=== PATIENT | female | born 1950 | race Caucasian/White ===

== ENCOUNTER 2022-02-28 16:49 | Outpatient (CLI) | payer OTHER ==
--- NOTE | 2022-03-01 13:08 | XRAY Report ---
PROCEDURE: Chest 2 View X-Ray INDICATIONS: COUGH TECHNIQUE: 2 view(s) of the chest. COMPARISON: None. FINDINGS: Surgical changes and devices: None. Lungs and pleura: Trace left blunting of the costophrenic angle blunting. Mediastinum: Mediastinal contours are normal. Heart size is normal. Bones and chest wall: No suspicious bony abnormalities. Soft tissues appear unremarkable. IMPRESSION: Trace left blunting of the costophrenic angle blunting, possibly trace effusion vs scarr ing. Reviewed by: Priscilla Whalen MD on 03/01/2022 1:07 PM PDT Approved by: Priscilla Whalen MD on 03/01/2022 1:07 PM PDT Station ID: [id number]
== END 2022-02-28 16:50 | disposition home or self-care (01) ==
LOC: DI.N 16:49
PROVIDERS: ATTEND Internal Medicine
DX: R05.9 Cough, unspecified (principal); R53.83 Other fatigue

== ENCOUNTER 2022-05-01 10:17 | Outpatient (CLI) | payer MEDICARE, OTHER ==
--- NOTE | 2022-05-01 20:19 | DEXA Report ---
PROCEDURE: Dexa Spine and/or Hip INDICATIONS: POST MENOPAUSAL TECHNIQUE: Dual energy x-ray absorptiometry (DXA) was performed on a [employer] System. Regions measur ed are the AP Spine, femoral neck, and if needed forearm. COMPARISON: None. FINDINGS: Lumbar Spine: Bone Mineral Density 1.124 g/cm/cm,T score -0.5, normal Left Hip: Bone Mineral Density 0.933 g/cm/cm,T score -0.6, normal Left Femoral Neck: Bone Mineral Density 0.797 g/cm/cm, T score -1.7, osteopenia (T score greater or equal to -1.0: NORMAL) (T score from -1.1 to -2.4: OSTEOPENIA) (T score less than or equal to -2.5 to: OSTEOPOROSIS) Impression: 1. Osteopenic left femoral neck Patients with diagnosis of osteoporosis or osteopenia should have regular bone mineral density assess ment. For those eligible for Medicare, routine testing is allowed once every 2 years. Testing frequ ency can be increased for patients who have rapidly progressing disease or for those who are receivin g medical therapy to restore bone mass. Reviewed by: Joe Capps MD on 05/01/2022 7:16 PM CORAL Approved by: Joe Capps MD on 05/01/2022 7:16 PM CORAL Station ID: [id number]
== END 2022-05-01 10:18 | disposition home or self-care (01) ==
LOC: DI 10:17
PROVIDERS: ATTEND Physician Assistant
DX: M85.88 Other specified disorders of bone density and structure, other site (principal)

== ENCOUNTER 2022-06-08 09:41 | Outpatient (CLI) | payer MEDICARE, OTHER ==
--- NOTE | 2022-06-09 10:16 | Ultrasound Report ---
LIMITED ULTRASOUND OF LEFT BREAST AND AXILLA: 06/08/2022 CLINICAL: Patient returns today to evaluate a focal asymmetry in the left breast. Comparison is made to exams dated: 06/08/2022 mammogram and 05/09/2022 mammogram - [facility]. Color flow and real-time ultrasound of the left breast 7 o'clock, and axilla regions were performed on the areas of interest. Lima scale images of the real-time examination were reviewed. There is a 0.5 cm x 0.4 cm x 0.5 cm irregular mass in the left breast at 7 o'clock posterior depth. This irregular mass is hypoechoic with posterior acoustic shadowing. No left axillary adenopathy. IMPRESSION: SUSPICIOUS OF MALIGNANCY The 0.5 cm x 0.4 cm x 0.5 cm irregular mass in the left breast is at a low suspicion for malignancy. An ultrasound guided biopsy is recommended. This exam was interpreted at Station ID: [id number]. SUMMARY: This was discussed with the patient by the radiologist at the time of the exam. Electronically Signed By: Brianna julian/:06/08/2022 12:47:20 Ultrasound BI-RADS: 4a Low suspicion for malignancy BI-RADS CATEGORY: (4a) - Low Susp Biopsy follow-up [id number] Immediate follow-up LATERALITY: (B)
--- NOTE | 2022-06-09 10:16 | Mammography Report ---
UNILATERAL LEFT DIGITAL DIAGNOSTIC MAMMOGRAM 3D/2D: 06/08/2022 CLINICAL: Patient returns today to evaluate a focal asymmetry in the left breast. Comparison is made to exam dated: 05/09/2022 mammogram - [facility]. There are scattered areas of fibroglandular density in the left breast (category b / 25%-50% glandula r tissue). The focal asymmetry in the left breast at 7 o'clock middle depth is seen in additional views. No other significant masses or calcifications are seen in the breast. IMPRESSION: INCOMPLETE: NEEDS ADDITIONAL IMAGING EVALUATION The irregular focal asymmetry in the left breast is indeterminate. A targeted ultrasound of the left breast is recommended and will be performed immediately following this exam. Based on the Tyrer Cuzick model (a risk assessment model) the patients lifetime risk is 3.2% and her 10 year risk is 2.9%. According to the ACR, ACS, and NCCN guidelines, an annual breast MRI exam shy g with mammogram is recommended if the patients lifetime risk is 20% or greater. This exam was interpreted at Station ID: [id number]. NOTE: For mammograms, a report in lay terms will be sent to the patient. Approximately 15% of breast malignancies will not be visualized mammographically. In the management of a palpable breast mass, a negative mammogram must not discourage biopsy of a clinically suspicious lesion. Electronically Signed By: Brianna Alatorre M.D. lk/:06/08/2022 10:24:33 ACR BI-RADS Category 0: Incomplete 3340F PARENCHYMAL PATTERN: (A) - The breast(s) demonstrate(s) scattered fibroglandular densities. BI-RADS CATEGORY: (0) - 0 Ultrasound [id number] Immediate follow-up LATERALITY: (B)
== END 2022-06-08 09:42 | disposition home or self-care (01) ==
LOC: DI 09:41
PROVIDERS: ATTEND Physician Assistant
DX: R92.8 Other abnormal and inconclusive findings on diagnostic imaging of breast (principal)

== ENCOUNTER 2022-06-22 12:15 | Outpatient (CLI) | payer MEDICARE ==
[~2022-06-22 12:15] MED LIST: LIDOCAINE 1%-EPI 1:100000 20 ML MDV ONE; lidocaine 1% 20 ML MDV ONE
[2022-06-22] MEDS ORDERED: lidocaine 1% 20 ML MDV SUBQ ONE (14:09)
[2022-06-22] MEDS ORDERED: LIDOCAINE 1%-EPI 1:100000 20 ML MDV SUBQ ONE (14:11)
--- NOTE | 2022-06-26 11:09 | Mammography Report ---
UNILATERAL LEFT DIGITAL DIAGNOSTIC MAMMOGRAM 3D/2D: 06/22/2022 CLINICAL: Post left breast ultrasound biopsy clip placement imaging. Comparison is made to exams dated: 06/08/2022 mammogram and 05/09/2022 mammogram - [facility]. There are scattered areas of fibroglandular density in the left breast (category b / 25%-50% glandula r tissue). There is a marker clip in the appropriate position adjacent to the left breast at 7 o'clock middle de pth. IMPRESSION: POST PROCEDURE MAMMOGRAM FOR MARKER PLACEMENT There was a successful marker clip placement in the left breast middle depth. Based on the Tyrer Cuzick model (a risk assessment model) the patients lifetime risk is 3.2% and her 10 year risk is 2.9%. According to the ACR, ACS, and NCCN guidelines, an annual breast MRI exam shy g with mammogram is recommended if the patients lifetime risk is 20% or greater. This exam was interpreted at Station ID: [id number]. NOTE: For mammograms, a report in lay terms will be sent to the patient. Approximately 15% of breast malignancies will not be visualized mammographically. In the management of a palpable breast mass, a negative mammogram must not discourage biopsy of a clinically suspicious lesion. Electronically Signed By: Tamir Chambers M.D. lc/:06/26/2022 10:08:58 ACR BI-RADS Category Post-procedure mammogram for marker placement PARENCHYMAL PATTERN: (A) - The breast(s) demonstrate(s) scattered fibroglandular densities. BI-RADS CATEGORY: () - Unspecified - other recall n/a LATERALITY: (B)
--- NOTE | 2022-06-27 09:07 | Ultrasound Report ---
ULTRASOUND GUIDED BIOPSY LEFT BREAST WITH MARKING DEVICE INSERTED: 06/22/2022 CLINICAL: Left breast mass. PATIENT CONSENT: Risks (minor bleeding, infection, vasovagal reaction and repeat procedure), benefits and alternatives were explained to the patient and written informed consent was obtained. Correlation is made to exams dated: 06/08/2022 ultrasound, 06/08/2022 mammogram, and 05/09/2022 mammogram - Located within [facility]. An ultrasound guided biopsy using real-time ultrasound was performed for the 0.5 cm x 0.4 cm x 0.5 cm mass located in the left breast at 7 o'clock posterior depth. The skin was prepped in the usual man ner. Local anesthetic was administered to the access site. A small incision was made in the breast. An 18 gauge biopsy needle was placed adjacent to the abnormality under ultrasound guidance. Once t he needle was documented to be in the correct location, a specimen was obtained using a [employer] biopsy d evice. A clip was inserted into the biopsy cavity. The specimen was sent to the laboratory for path ological analysis. IMPRESSION: ULTRASOUND GUIDED BIOPSY BENIGN Ultrasound guided biopsy of the 0.5 cm x 0.4 cm x 0.5 cm mass in the left breast at 7 o'clock posteri or depth was successful. Pathology indicates benign fibrofatty breast tissue with fibrocystic change s. Pathology results are concordant with imaging findings. Recommend screening mammogram in one year. This exam was interpreted at Station ID: [id number]. Tamir Romero M.D. ,aty/:06/26/2022 21:58:21 BI-RADS CATEGORY: () - Mammogram [id number] return to screening LATERALITY: (B)
== END 2022-06-22 12:16 | disposition home or self-care (01) ==
LOC: DI 12:15
PROVIDERS: ATTEND Physician Assistant
DX: N60.12 Diffuse cystic mastopathy of left breast (principal)
CPT/HCPCS: 19083